=== PATIENT | male | born 1975 | race American Indian/Alaskan Native ===

== ENCOUNTER 2021-02-28 11:31 | Emergency (ER) | payer SELFPAY ==
--- NOTE | 2021-02-28 11:43 | Event Note ---
ED Screening Note Date of service: 02/28/21 Time: 11:41 ED Screening Note: 45-year-old male patient presents to the emergency department with complaints of progressively worsening right lower extremity pain/swelling over the last few weeks. States he thought he "pulled a muscle" a few weeks ago. No venous normal embolism risk factors identified on history. General: Awake, appropriately interactive, no acute distress. Neck: Supple. Full range of motion intact. Cardiovascular: Normal peripheral perfusion. Pulmonary: No respiratory distress. Patient is speaking normally without use of accessory muscles. Skin: No apparent rashes or lesions. Neurological: No facial asymmetry. Speech is clear. Follows commands. Patient is alert and oriented. Musculoskeletal: Right calf tenderness and swelling. Pretibial pitting edema noted to the right lower extremity. Distal neurovascular and motor/sensory function is intact. Psych: Cooperative. Appropriate mood and affect. This initial assessment/diagnostic orders/clinical plan/treatment(s) is/are subject to change based on patients health status, clinical progression and re- assessment by fellow clinical providers in the ED. Further treatment and workup at subsequent clinical providers discretion. Patient/guardian urged not to elope from the ED as their condition may be serious if not clinically assessed and managed.
--- NOTE | 2021-02-28 12:44 | Emergency Department Report ---
ED Extremity Problem HPI - General Chief complaint: Extremity Injury, Lower Stated complaint: RT LEG SWOLLEN Source: patient, EMS Mode of arrival: Ambulatory Limitations: No Limitations - History of Present Illness Initial comments: 45-year-old morbid obese -Australian male presents to the emergency room complaining of pain that started little over 1 week ago. Patient states that when he was walking down escalators and got to the bottom and stepped down and felt like his calf was ripping inside. Patient states that he went home rested and then it happened again. Patient is taking nothing for his discomfort. Patient does report a past medical history of hypertension and is currently on amlodipine high hydrochlorothiazide and potassium pill. Patient has become t earful during my interview and states that he has a lot going on. Patient states his loss 11 people from his immediate family and has not been able to see his family in [place] since [facility]. Patient states that he has been feeling down but denies any suicidal homicidal ideation. Patient is followed by [facility] but has only seen them for virtual visits. Patient is requesting a referral to a provider that is nearby. MD Complaint: extremity pain, extremity swelling Onset/Timin -: week(s) Location: right, lower extremity History of Same: No -: Yes myalgia Severity scale (0 -10): 5 Quality: aching Consistency: intermittent Improves with: nothing Worsens with: nothing Associated Symptoms: denies other symptoms - Related Data Home Medications Medication Instructions Recorded Confirmed Last Taken Potassium Chloride [K-Dur] 20 meq PO QDAY 02/28/21 02/28/21 Unknown amLODIPine [Norvasc] 10 mg PO DAILY 02/28/21 02/28/21 Unknown hydroCHLOROthiazide [HCTZ] 25 mg PO DAILY 02/28/21 02/28/21 Unknown Allergies Allergy/AdvReac Type Severity Reaction Status Date / Time Sulfa (Sulfonamide Allergy Hives Verified 02/28/21 11:39 Antibiotics) ED Review of Systems ROS: Stated complaint: RT LEG SWOLLEN Other details as noted in HPI Comment: All other systems reviewed and negative ED Past Medical Hx - Past Medical History Hx Hypertension: Yes - Surgical History Additional Surgical History: ANKLE - Social History Smoking Status: Current Every Day Smoker Substance Use Type: None - Medications Home Medications: Home Medications Medication Instructions Recorded Confirmed Last Taken Type Potassium Chloride [K-Dur] 20 meq PO QDAY 02/28/21 02/28/21 Unknown History amLODIPine [Norvasc] 10 mg PO DAILY 02/28/21 02/28/21 Unknown History hydroCHLOROthiazide [HCTZ] 25 mg PO DAILY 02/28/21 02/28/21 Unknown History ED Physical Exam - General Limitations: No Limitations General appearance: alert, in no apparent distress - Head Head exam: Present: atraumatic, normocephalic - Eye Eye exam: Present: normal appearance - ENT ENT exam: Present: mucous membranes moist - Neck Neck exam: Present: normal inspection, full ROM - Respiratory Respiratory exam: Present: normal lung sounds bilaterally. Absent: chest wall tenderness, accessory muscle use - Cardiovascular Cardiovascular Exam: Present: regular rate, normal rhythm. Absent: systolic murmur, diastolic murmur, rubs, gallop - Expanded Lower Extremity Exam Right Hip exam: Present: normal inspection, full ROM Upper Leg exam: Present: normal inspection, full ROM Knee exam: Present: normal inspection, full ROM Lower Leg exam: Present: normal inspection, full ROM, tenderness, swelling. Absent: abrasion, laceration, ecchymosis, deformity, crepidus, dislocation Ankle exam: Present: normal inspection, full ROM, dislocation (Hyperpigmented) Foot/Toe exam: Present: normal inspection, full ROM Neuro vascular tendon exam: Present: no vascular compromise Gait: Positive: observed and normal - Back Exam Back exam: Present: normal inspection, full ROM - Neurological Exam Neurological exam: Present: alert, oriented X3 - Psychiatric Psychiatric exam: Present: normal affect, normal mood, depressed - Skin Skin exam: Present: warm, dry, intact, normal color. Absent: rash ED Course Vital Signs 02/28/21 11:38 Temperature 98.9 F Pulse Rate 88 Respiratory 15 Rate Blood Pressure 160/91 O2 Sat by Pulse 98 Oximetry ED Medical Decision Making - Radiology Data Radiology results: report reviewed [facility] [address] [place] [address] Vascular Lab Report Signed Patient: ARSENIO FERNANDEZ MR#: [id number] : 1975 Acct:[id number] Age/Sex: 45 / M ADM Date: 02/28/21 Loc: ED Attending Dr: Ordering Physician: NIEVES PIERCE Date of Service: 02/28/21 Procedure(s): VL venous duplex LE RT Accession Number(s): [id number] cc: NIEVES PIERCE Right lower extremity Doppler venous ultrasound INDICATION: Edema and pain FINDINGS: The right common femoral vein, superficial femoral vein and popliteal vein have normal compressibility and phasic flow IMPRESSION: No evidence for DVT. Signer Name: Romel Romero MD Signed: 02/28/2021 2:26 PM Workstation Name: [id number] Transcribed By: CW Dictated By: EVA ROMERO MD Electronically Authenticated By: EVA ROMERO MD Signed Date/Time: 02/28/211425 DD/ 24 TD/TT: Print Cancel - Medical Decision Making 45-year-old morbid obese -Australian male presents to the emergency room complaining of pain that started little over 1 week ago. Patient states that when he was walking down escalators and got to the bottom and stepped down and felt like his calf was ripping inside. Patient states that he went home rested and then it happened again. Patient is taking nothing for his discomfort. Patient does report a past medical history of hypertension and is currently on amlodipine high hydrochlorothiazide and potassium pill. Patient has become tearful during my interview and states that he has a lot going on. Patient states his loss 11 people from his immediate family and has not been able to see his family in [place] since [facility]. Patient states that he has been feeling down but denies any suicidal homicidal ideation. Patient is followed by [facility] but has only seen them for virtual visits. Patient is requesting a referral to a provider that is nearby. Ultrasounds negative for any DVT. Patient does appear to have vascular insufficiency as he has dark and thick skin on his right lower leg and ankle. Discussed with patient I will refer him to Dr. Ashley as well as Dr. Victor M Brito. Discussed with patient I will refer him to mental health to discuss with the therapist on how to deal with grief and depression. Patient is very appreciative and verbalized understanding of the plan. Critical care attestation.: If time is entered above; I have spent that time in minutes in the direct care of this critically ill patient, excluding procedure time. ED Disposition Clinical Impression: Right calf pain, Morbid obesity with BMI of 45.0-49.9, adult, Depression, acute Hypertension Qualifiers: Hypertension type: unspecified Qualified Code(s): I10 - Essential (primary) hypertension Disposition: DC-01 TO HOME OR SELFCARE Is pt being admited?: No Does the pt Need Aspirin: No Condition: Stable Instructions: Hypertension (ED), Hypertension, Adult, Oiid-ra-Beqi, Major Depressive Disorder, Adult, [id number] Additional Instructions: Please follow-up with providers that I have listed below. Also stop smoking. Tylenol or ibuprofen for pain discomfort. Referrals: PRIMARY CARE, [Primary Care Provider] - 3-5 Days VERENICE ASHLEY MD [Staff Physician] - 3-5 Days MARIN COLLINS MD [Staff Physician] - 3[facility] Days [facility] Days
--- NOTE | 2021-02-28 14:30 | Vascular Lab Report ---
Right lower extremity Doppler venous ultrasound INDICATION: Edema and pain FINDINGS: The right common femoral vein, superficial femoral vein and popliteal vein have normal comp ressibility and phasic flow IMPRESSION: No evidence for DVT. Signer Name: Romel Romero MD Signed: 02/28/2021 2:26 PM Workstation Name: [id number]
[2021-02-28 16:23] VITALS: BP 145/92
== END 2021-02-28 16:25 | disposition home or self-care (01) ==
LOC: ED 11:31
DX: E66.01 Morbid (severe) obesity due to excess calories (principal); I10 Essential (primary) hypertension; M79.661 Pain in right lower leg; F17.200 Nicotine dependence, unspecified, uncomplicated; F32.9 Major depressive disorder, single episode, unspecified; Z68.42 Body mass index [BMI] 45.0-49.9, adult; Z79.899 Other long term (current) drug therapy; Z88.2 Allergy status to sulfonamides

== ENCOUNTER 2022-01-01 19:07 | Emergency (ER) | payer SELFPAY ==
[2022-01-01] MEDS ORDERED: dexAMETHasone 20 MG/5 ML VIAL IM ONE (21:54)
[2022-01-01] MEDS ORDERED: oxyCODONE /ACETAMINOPHEN 5-325MG TAB PO ONE (21:54)
[2022-01-01] MEDS ORDERED: KETOROLAC 30 MG/1 ML INJ IM ONE (21:54)
[2022-01-01] MEDS ORDERED: ONDANSETRON 4 MG ODT TAB PO ONE (21:54)
--- NOTE | 2022-01-02 00:11 | Emergency Department Report ---
ED Back Pain/Injury HPI - General Chief Complaint: Back Pain/Injury Stated Complaint: LOWER BACK PAIN Source: patient Limitations: No Limitations - History of Present Illness Initial Comments: Patient is a 46-year-old -Luxembourger male with a history of morbid obesity and hypertension who presented to the ED with complaint of acute onset persistent low back pain for the last 1 week, worse in the last 3 days. Patient states that his job entails heavy lifting and pushing and that he suspect that the pain may be from injury at work. Patient denies numbness and tingling or weakness of lower extremities bilaterally, urinary or bowel incontinence, hematuria, testicular pain, nausea and vomiting, fever, chills, fall, traumatic injury, head or neck injuries, headache, neck pain, nausea and vomiting or fever and chills. MD Complaint: back pain (lower back pain) -: Sudden, week(s) (1) Similar Symptoms Previously: No Place: work Radiation: none Severity: severe Severity scale (0 -10): 7 Quality: sharp, aching Consistency: constant Improves With: none Worsens With: movement, sitting upright, walking Context: while lifting, turning/twisting Associated Symptoms: denies other symptoms. denies: confusion, weakness, chest pain, numbness, difficulty walking, cough, difficulty urinating, diaphoresis, incontinence, constipation, headaches, abdominal pain, loss of appetite, malaise, nausea/vomiting, rash, seizure, shortness of breath, syncope Treatments Prior to Arrival: acetaminophen - Related Data Home Medications Medication Instructions Recorded Confirmed Last Taken Potassium Chloride [K-Dur] 20 meq PO QDAY 02/28/21 02/28/21 Unknown amLODIPine [Norvasc] 10 mg PO DAILY 02/28/21 02/28/21 Unknown hydroCHLOROthiazide [HCTZ] 25 mg PO DAILY 02/28/21 02/28/21 Unknown Previous Rx's Medication Instructions Recorded Last Taken Type Ibuprofen [Motrin] 800 mg PO Q8HR PRN #30 tablet 01/02/22 Unknown Rx methOCARBAMOL [Robaxin TAB] 750 mg PO Q8H PRN #30 tab 01/02/22 Unknown Rx predniSONE [Deltasone] 60 mg PO QDAY #15 tab 01/02/22 Unknown Rx traMADoL [Ultram] 50 mg PO Q6HR PRN #12 tablet 01/02/22 Unknown Rx Allergies Allergy/AdvReac Type Severity Reaction Status Date / Time Sulfa (Sulfonamide Allergy Hives Verified 02/28/21 11:39 Antibiotics) ED Review of Systems ROS: Stated complaint: LOWER BACK PAIN Other details as noted in HPI Constitutional: denies: chills, fever Eyes: denies: eye pain, eye discharge, vision change ENT: denies: ear pain, throat pain Respiratory: denies: cough, shortness of breath, wheezing Cardiovascular: denies: chest pain, palpitations Endocrine: no symptoms reported Gastrointestinal: denies: abdominal pain, nausea, diarrhea Genitourinary: denies: urgency, dysuria Musculoskeletal: back pain (Low back pain), arthralgia, myalgia. denies: joint swelling Skin: denies: rash, lesions Neurological: denies: headache, weakness, paresthesias Psychiatric: denies: anxiety, depression Hematological/Lymphatic: denies: easy bleeding, easy bruising ED Past Medical Hx - Past Medical History Previous Medical History?: Yes Hx Hypertension: Yes Additional medical history: obesity - Surgical History Past Surgical History?: Yes Additional Surgical History: ANKLE - Social History Smoking Status: Former Smoker Substance Use Type: None - Medications Home Medications: Home Medications Medication Instructions Recorded Confirmed Last Taken Type Potassium Chloride [K-Dur] 20 meq PO QDAY 02/28/21 02/28/21 Unknown History amLODIPine [Norvasc] 10 mg PO DAILY 02/28/21 02/28/21 Unknown History hydroCHLOROthiazide [HCTZ] 25 mg PO DAILY 02/28/21 02/28/21 Unknown History Ibuprofen [Motrin] 800 mg PO Q8HR PRN #30 tablet 01/02/22 Unknown Rx methOCARBAMOL [Robaxin TAB] 750 mg PO Q8H PRN #30 tab 01/02/22 Unknown Rx predniSONE [Deltasone] 60 mg PO QDAY #15 tab 01/02/22 Unknown Rx traMADoL [Ultram] 50 mg PO Q6HR PRN #12 tablet 01/02/22 Unknown Rx ED Physical Exam - General Limitations: No Limitations General appearance: alert, in no apparent distress - Head Head exam: Present: atraumatic, normocephalic, normal inspection - Eye Eye exam: Present: normal appearance, PERRL, EOMI Pupils: Present: normal accommodation - ENT ENT exam: Present: normal exam, normal orophraynx, mucous membranes moist, TM's normal bilaterally, normal external ear exam - Neck Neck exam: Present: normal inspection, full ROM - Respiratory Respiratory exam: Present: normal lung sounds bilaterally. Absent: respiratory distress, wheezes, rales, rhonchi, chest wall tenderness, accessory muscle use, decreased breath sounds, prolonged expiratory, other - Cardiovascular Cardiovascular Exam: Present: regular rate, normal rhythm, normal heart sounds. Absent: systolic murmur, diastolic murmur, rubs, gallop - GI/Abdominal GI/Abdominal exam: Present: soft, normal bowel sounds. Absent: tenderness, guarding, rebound, hyperactive bowel sounds, hypoactive bowel sounds, organomegaly, mass - Extremities Exam Extremities exam: Present: normal inspection, full ROM, normal capillary refill. Absent: tenderness - Back Exam Back exam: Present: normal inspection, full ROM, tenderness (Palpable lumbosacral paraspinal musculoskeletal tenderness; no vertebral tenderness), muscle spasm. Absent: CVA tenderness (R), CVA tenderness (L), paraspinal tenderness, vertebral tenderness - Neurological Exam Neurological exam: Present: alert, oriented X3, CN II-XII intact, normal gait, reflexes normal - Psychiatric Psychiatric exam: Present: normal affect, normal mood - Skin Skin exam: Present: warm, dry, intact, normal color. 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 Patient states that his job entails heavy lifting and pushing and that he suspect that the pain may be from injury at work. The ED, patient is alert and oriented x3 and is not in any distress. Patient however appears to be in pain. The L-spine x-ray showed no acute fractures or subluxations of the lumbar spine. On reevaluation, patient's pain is well controlled medication. Patient was discharged home on pain medications and muscle relaxants and advised to follow-up with his primary care physician in 7 to 10 days for reevaluation or return to the ED immediately if symptoms get worse. - Differential Diagnosis Muscle spasm; muscle strain; back injury; Critical care attestation.: If time is entered above; I have spent that time in minutes in the direct care of this critically ill patient, excluding procedure time. ED Disposition Clinical Impression: Spasm of muscle of lower back, Strain of muscle, fascia and tendon of lower back, initial encounter Acute low back pain without sciatica Qualifiers: Back pain laterality: bilateral Qualified Code(s): M54.50 - Low back pain, unspecified Disposition: HOME / SELF CARE / HOMELESS Is pt being admited?: No Does the pt Need Aspirin: No Condition: Stable Instructions: Muscle Cramps and Spasms, [id number], Muscle Strain, [id number], Back Injury Prevention, [id number], Low Back Sprain or Strain Rehab-SportsMed Additional Instructions: Your low back pain is likely due to muscle spasm and muscle strain of your low back. L-spine x-ray showed no acute fractures or subluxations of your lower back. Therefore take medications with food, drink plenty of fluids and follow- up with your primary care physician in 7 to 10 days for reevaluation. Return to the ED immediately if symptoms get worse. Prescriptions: predniSONE [Deltasone] 60 mg PO QDAY #15 tab Ibuprofen [Motrin] 800 mg PO Q8HR PRN #30 tablet PRN Reason: Pain , Severe (7-10) methOCARBAMOL [Robaxin TAB] 750 mg PO Q8H PRN #30 tab PRN Reason: Muscle Spasm traMADoL [Ultram] 50 mg PO Q6HR PRN #12 tablet PRN Reason: Pain Referrals: [facility] [Provider Group] - 3-5 Days Forms: Work/School Release Form(ED) Time of Disposition: 00:11 Print Language: JAPANESE
[2022-01-02 01:18] VITALS: BP 158/102
--- NOTE | 2022-01-05 10:14 | XRay Report ---
XR spine lumbosacral 2-3V INDICATION / CLINICAL INFORMATION: Pain COMPARISON: None available. TECHNIQUE: AP lateral images of the lumbar spine and spot lateral images lumbar sacral junction. FINDINGS: Alignment of the lumbar vertebral bodies. Vertebral body heights and intervertebral disc spaces are well-maintained throughout. No evidence of acute fracture. Visualized osseous structures the pelvis and sacrum demonstrate no acute findings. IMPRESSION: 1. No acute fracture. No significant degenerative change. Signer Name: Anthony Aparicio II, MD Signed: 01/01/2022 10:20 PM Workstation Name: [id number]
== END 2022-01-02 01:19 | disposition home or self-care (01) ==
LOC: ED 19:07
DX: S39.012A Strain of muscle, fascia and tendon of lower back, initial encounter (principal); M62.830 Muscle spasm of back; Z87.891 Personal history of nicotine dependence; Z88.2 Allergy status to sulfonamides; X58.XXXA Exposure to other specified factors, initial encounter; Y93.89 Activity, other specified; Y92.89 Other specified places as the place of occurrence of the external cause; Y99.8 Other external cause status
CPT/HCPCS: 72100; 96372; 99283; J1100; J1885; J3490; Q0162